=== PATIENT | male | born 1990 | race Two or more races ===

== ENCOUNTER 2020-05-08 07:47 | Emergency (ER) | payer SELFPAY ==
[~2020-05-08] VITALS: Ht 172.7 cm; Wt 56.5 kg
[2020-05-08 07:55] VITALS: BP 110/53
[2020-05-08 08:22] LABS: BASOPHILS # (AUTO) 0.03 x10^3/uL (0-0.1); BASOPHILS % (AUTO) 0 % (0-1); EOSINOPHILS % (AUTO) 1 % (1-7); LYMPHOCYTES # (AUTO) 2.99 x10^3/uL (1-3.4); LYMPHOCYTES % (AUTO) 41 % (22-44); MD NO; MEAN CORPUSCULAR HGB CONC 32.2 g/dL (33.2-36.2); MEAN CORPUSCULAR VOLUME 86.8 fL (81-97); MEAN PLATELET VOLUME 7.6 fL (7.4-10.4); MONOCYTES # (AUTO) 0.29 x10^3/uL (0.2-0.8); MONOCYTES % (AUTO) 4 % (2-9); NEUTROPHILS # (AUTO) 3.99 x10^3/uL (1.8-6.8); NEUTROPHILS % (AUTO) 54 % (42-75); PLATELET COUNT 333 x10^3/uL (130-400); RED BLOOD COUNT 5.41 x10^6/uL (4.38-5.82); RED CELL DISTRIBUTION WIDTH 14.2 % (9.4-14.8)
[2020-05-08 08:34] LABS: ALANINE AMINOTRANSFERASE 40 U/L (12-78); ALBUMIN 4.1 g/dL (3.4-5.0); ANION GAP 11 mmol/L (5-15); CALCIUM 8.5 mg/dL (8.5-10.1); CHLORIDE 109 mmol/L (98-107); CREATININE 1.32 mg/dL (0.7-1.3)
[2020-05-08 08:37] LABS: ALKALINE PHOSPHATASE 52 U/L (45-117); BILIRUBIN,TOTAL 0.2 mg/dL (0.2-1.0); TOTAL PROTEIN 8.3 g/dL (6.4-8.2)
--- NOTE | 2020-05-08 12:17 | NUR ---
[facility] given discharge instructions and they have confirmed that they understand the instructions. Patient ambulatory with steady gait.
== END 2020-05-08 12:18 | disposition home or self-care (01) ==
LOC: ED 09:29
DX: F10.10 Alcohol abuse, uncomplicated (principal); R94.31 Abnormal electrocardiogram [ECG] [EKG]; Y90.0 Blood alcohol level of less than 20 mg/100 ml
CPT/HCPCS: 36415; 80053; 85025; 93005; 99284

== ENCOUNTER 2020-09-14 10:33 | Emergency (ER) | payer SELFPAY ==
[~2020-09-14] VITALS: Ht 172.7 cm; Wt 61.0 kg
[2020-09-14 11:12] VITALS: BP 105/55
== END 2020-09-14 12:19 | disposition home or self-care (01) ==
LOC: ED 12:13
DX: B34.9 Viral infection, unspecified (principal); Z20.828 Contact with and (suspected) exposure to other viral communicable diseases; M79.10 Myalgia, unspecified site
CPT/HCPCS: 87635; 99283

== ENCOUNTER 2021-02-27 02:23 | Emergency (ER) | payer MEDICAID, OTHER ==
[~2021-02-27] VITALS: Ht 175.3 cm; Wt 57.9 kg
--- NOTE | 2021-02-27 02:32 | NUR ---
bib ems from the [facility]. pt highly intoxicated and admits to drinking "a lot". pt states drinking up to 2 pints per day, no other complaints. pt placed on director of cardiac rehabilitation and continuous pulse ox
--- NOTE | 2021-02-27 05:09 | NUR ---
pt sleeping in gurney, difficult to arouse, pt dozing while talking to him. unable to road test at this time. vss, will continue to monitor
[2021-02-27 06:21] VITALS: BP 117/70
== END 2021-02-27 06:56 | disposition home or self-care (01) ==
LOC: ED 05:30
DX: F10.220 Alcohol dependence with intoxication, uncomplicated (principal); F17.210 Nicotine dependence, cigarettes, uncomplicated; Z72.9 Problem related to lifestyle, unspecified; Y90.0 Blood alcohol level of less than 20 mg/100 ml
CPT/HCPCS: 99283; 99406